=== PATIENT | male | born 2000 | race Caucasian/White ===

== ENCOUNTER 2025-01-31 15:16 | Emergency (ER) | payer BC ==
[~2025-01-31] VITALS: Ht 185.4 cm; Wt 79.7 kg
[2025-01-31 15:18] VITALS: TEMP 97.8
--- NOTE | 2025-01-31 15:29 | Physician Documentation ---
History of Present Illness ~ Chief Complaint: Shortness of Breath Stated Complaint: PAIN IN LUNGS Time Seen by MD: 15:23 HPI 24-year-old male presents to the ED with a complaint of �inflamed lungs�. States that he has had a cough for the last week and coughed up a bit of blood yesterday. States that was not very much. He is otherwise healthy. Medication Reconciliation Allergies: Coded Allergies: No Known Allergies (Unverified , 01/31/25) Scheduled PRN albuterol inhaler (Pro-Air Inhaler), 2 PUFFS INH Q4HPRN PRN for wheezing Review of Systems All Other Systems at this time: Reviewed and Negative ROS As stated above in the HPI, otherwise all systems are reviewed and negative. Physical Exam Vital Signs: Temperature: 97.8, Source: Temporal, Heart Rate: 66, Respiratory Rate: 18, BP: 140/84, Pulse Oximetry: 100, Weight: 79.650 Physical Exam General: Alert, no apparent distress. Neck: Full range of motion. Respiratory: Lungs clear, no respiratory distress. Cardiovascular: Regular rate and rhythm, no murmurs. Neurologic: Oriented x4. Psychiatric: Normal mood and affect. Skin: Normal color, warm and dry. No edema, no ecchymosis. Progress Results/Orders Results/Orders Orders - SINCERE NICK [employer] Chest,Single View (01/31/25 15:24) Completed Orders - SINCERE NICK [employer] Chest,Single View (01/31/25 15:24) Vital Signs 01/31/25 01/31/25 01/31/25 01/31/25 15:18 15:49 16:13 16:20 Temp 97.8 Pulse 66 69 74 Resp 18 12 15 17 B/P (MAP) 140/84 134/84 (101) 123/72 Pulse Ox 100 98 97 Medical Decision Making Findings Currently suspect any viral upper respiratory infection. Discussed this with the patient going to send him home with an inhaler.. Does not present any acute distress in his nontoxic appearing at this time Differential Dx:Considerations: Include: anxiety, asthma, bronchitis, cardiogenic shock, CHF, COPD, dysrhythmia, hypertension, accelerated, hypertension, essential, hypertension, malignant, hyperventilation, hyponatremia, myocardial infarction, panic attack, pneumonia, pneumonitis, pneumothorax, PSVT, pulmonary embolism, respiratory distress, respiratory failure, sinusitis, upper resp. infection, other Departure Disposition: HOME / SELF CARE / HOMELESS Impression: Primary Impression: Bronchitis Condition: Improved Discharge Instructions: Bronchitis Referrals: NO PRIMARY CARE PROVIDER (PCP) Prescriptions albuterol inhaler (Pro-Air Inhaler) 8.5 Gm Inhaler 2 PUFFS INH Q4HPRN PRN for wheezing for 30 Days, #18 GM Prov: SINCERE NCIK [employer] 01/31/25 Education Educated: Patient Educated regarding: diagnosis Signature Scribe Signature: h Attestation: The note accurately reflects work and decisions made by me.Sincere Cook NP 02/01/25 08:38 SINCERE NICK NP January 31, 2025 15:29
--- NOTE | 2025-01-31 15:37 | RADIOLOGY REPORT ---
CHEST RADIOGRAPH Indication: CP Technique: Single frontal view of the chest was obtained Comparison: None FINDINGS: The cardiac silhouette is unremarkable. The lungs demonstrate no pulmonary airspace consolidation. Th e pulmonary vasculature is unremarkable. There is no pleural effusion.. There is no pneumothorax. IMPRESSION: 1. No pulmonary airspace consolidation.<< >>
[2025-01-31] MEDS ORDERED: ALBU8HFA INH (15:49)
[2025-01-31 16:20] VITALS: BP 123/72; PULSE 74; RESP 17; O2SAT 97
== END 2025-01-31 16:25 | disposition home or self-care (01) ==
LOC: ER 15:16
DX: J40 Bronchitis, not specified as acute or chronic (principal)
CPT/HCPCS: 71045; 99283